=== PATIENT | female | born 1950 | race Caucasian/White ===

== ENCOUNTER 2023-06-22 11:06 | Outpatient (OUT) | payer MEDICARE, SELFPAY ==
--- NOTE | 2023-06-22 11:40 | MM_ITS ---
Patient Name: MERT MURGUIA MR#: [id number] : 1950 Exam Date: 06/22/2023 Ordering Doctor: DR. HIRA MENJIVAR . RADIOLOGY REPORT PROCEDURE: MM TOMOSYNTHESIS SCREENING BI COMPARISON: MG MAMM SCREEN 3D MG CAD, 03/19/2021. MG MAMM SCREEN 3D MG CAD, 06/05/2022. INDICATIONS: screening Calculator Name NCI Breast Cancer Risk Assessment Tool 5 Year Breast Cancer Risk 1.40% Lifetime Breast Cancer Risk 4.00% Personal Breast Cancer No Personal Ovarian Cancer No Treatments None Family Cancers None LOCATION: [facility] BREAST COMPOSITION: Scattered areas fibroglandular density. FINDINGS: DIAGNOSTIC CATEGORY 2--BENIGN FINDING. NO CHANGE FROM COMPARISON. Scattered benign-appearing calcifications are present. Scattered benign-appearing nodules are present. RIGHT BREAST: No significant suspicious finding. LEFT BREAST: No significant suspicious finding. RECOMMENDATIONS: ROUTINE MAMMOGRAM AND CLINICAL EVALUATION IN 12 MONTHS. PLEASE NOTE: A NORMAL MAMMOGRAM DOES NOT EXCLUDE THE POSSIBILITY OF BREAST CANCER. A CLINICALLY SUSPICIOUS PALPABLE LUMP SHOULD BE BIOPSIED. Dictated by: Mervin Orlando MD on 06/22/2023 at 11:56 Approved by: Mervin Orlando MD on 06/22/2023 at 12:23
== END 2023-06-22 11:07 | disposition home or self-care (01) ==
LOC: MAMMO 11:11
PROVIDERS: PCP Family Medicine; Visit Provider Family Medicine
DX: Z12.31 Encounter for screening mammogram for malignant neoplasm of breast (principal)
CPT/HCPCS: 77063; 77067

== ENCOUNTER 2024-06-30 08:52 | Outpatient (OUT) | payer MEDICARE, SELFPAY ==
--- NOTE | 2024-06-30 08:55 | MM_ITS ---
Patient Name: MERT MURGUIA MR#: [id number] : 1950 Exam Date: 06/30/2024 Ordering Doctor: CALOS SANCHEZ . RADIOLOGY REPORT PROCEDURE: MM TOMOSYNTHESIS SCREENING BI COMPARISON: MM TOMOSYNTHESIS SCREENING BI, 06/22/2023. MG MAMM SCREEN 3D MG CAD, 06/05/2022. MG MAMM SCREEN 3D MG CAD, 03/19/2021. MG MAMM MG SCRN W CAD DIG, 02/28/2013. INDICATIONS: Screening Calculator Name NCI Breast Cancer Risk Assessment Tool 5 Year Breast Cancer Risk 1.40% Lifetime Breast Cancer Risk 3.80% Personal Breast Cancer No Personal Ovarian Cancer No Treatments None Family Cancers None LOCATION: [facility] BREAST COMPOSITION: There are scattered areas of fibroglandular density. FINDINGS: DIAGNOSTIC CATEGORY 2--BENIGN FINDING: RIGHT BREAST: No significant suspicious finding. Scattered benign-appearing calcifications are present. No significant change has occurred. LEFT BREAST: No significant suspicious finding. Scattered benign-appearing calcifications are present. No significant change has occurred. RECOMMENDATIONS: ROUTINE MAMMOGRAM AND CLINICAL EVALUATION IN 12 MONTHS. PLEASE NOTE: A NORMAL MAMMOGRAM DOES NOT EXCLUDE THE POSSIBILITY OF BREAST CANCER. A CLINICALLY SUSPICIOUS PALPABLE LUMP SHOULD BE BIOPSIED. Dictated by: Bryan Nick M.D. on 06/30/2024 at 15:05 Approved by: Bryan Nick M.D. on 06/30/2024 at 15:07
== END 2024-06-30 08:53 | disposition home or self-care (01) ==
LOC: MAMMO 08:52
PROVIDERS: PCP Family Medicine; Visit Provider Nurse Practitioner
DX: Z12.31 Encounter for screening mammogram for malignant neoplasm of breast (principal)
CPT/HCPCS: 77063; 77067

== ENCOUNTER 2024-10-24 13:22 | Outpatient (OUT) | payer MEDICARE, SELFPAY ==
--- NOTE | 2024-10-24 13:46 | XR_ITS ---
[facility] [place] [id number] Patient Name: MERT MURGUIA MRN: [id number] date: 1950 Sex: F Assigned Patient Location: [facility] Current Patient Location: [facility] Accession/Order Number: [id number] Exam Date: 10/24/2024 14:08 Report Date: 10/24/2024 14:09 At the request of: CALOS SANCHEZ Procedure: XR hip RT min 2V RIGHT HIP - 2 views: CLINICAL HISTORY: Right Hip Pain, Artificial Right Hip COMPARISON: Right hip series 05/04/2020 FINDINGS: Right SANDRA without radiographic complication. No acute bony process. XR/XR hip RT min 2V IMPRESSION: NO HARDWARE COMPLICATION.. Impression dictated by: Aleksander Clement Jr., D.O. 10/24/2024 2:09 PM Dictation Location: [place] [id number] Electronically authenticated by: [id number] Y Date: 10/24/2024 14:09
== END 2024-10-24 13:23 | disposition home or self-care (01) ==
PROVIDERS: PCP Family Medicine; Visit Provider Nurse Practitioner
DX: M25.551 Pain in right hip (principal); Z96.641 Presence of right artificial hip joint; Z87.891 Personal history of nicotine dependence; Z68.41 Body mass index [BMI] 40.0-44.9, adult
CPT/HCPCS: 73502